=== PATIENT | female | born 1990 | race American Indian/Alaskan Native ===

== ENCOUNTER 2019-04-06 19:19 | Emergency (ER) | payer MEDICAID ==
--- NOTE | 2019-04-06 19:51 | Event Note ---
ED Screening Note Date of service: 04/06/19 Time: 19:47 ED Screening Note: 29 y o female presents with sudden onset of left sided radiating chest pain to back statrted at 3 pm today getting worse This initial assessment/diagnostic orders/clinical plan/treatment(s) is/are subject to change based on patients health status, clinical progression and re- assessment by fellow clinical providers in the ED. Further treatment and workup at subsequent clinical providers discretion. Patient/guardian urged not to elope from the ED as their condition may be serious if not clinically assessed and managed. Initial orders include: labd ua cxr O2 stat Main side eval
[2019-04-06 20:30] LABS: Bacteria,Urine 4+ /HPF (Negative); Bilirubin,Urine NEG (Negative); Blood,Urine LG (Negative); Color,Urine Yellow (Yellow); Hyaline Casts,Urine 2 /LPF; Mucus,Urine 3+ /HPF; Sperm,Urine FEW /HPF (NP); Urobilinogen,Urine < 2.0 mg/dL (<2.0)
[2019-04-06 20:34] LABS: Basophils % (Auto) 0.5 % (0.0-1.8); Eosinophils # (Auto) 0.1 K/mm3 (0.0-0.4); Eosinophils % (Auto) 1.8 % (0.0-4.3); Hematocrit 38.8 % (30.3-42.9); Hemoglobin 12.4 gm/dl (10.1-14.3); Lymphocytes # (Auto) 2.6 K/mm3 (1.2-5.4); Lymphocytes % (Auto) 34.7 % (13.4-35.0); Mean Corpuscular HGB Conc 32 % (30-34); Mean Corpuscular Volume 81 fl (79-97); Monocytes # (Auto) 0.7 K/mm3 (0.0-0.8); Monocytes % (Auto) 9.3 % (0.0-7.3); Platelet Count 260 K/mm3 (140-440); Red Cell Distribution Width 17.3 % (13.2-15.2)
[2019-04-06 20:40] LABS: Amphetamine Screen,Urine PRESUMPTIVE NEGATIVE; Benzodiazepines Screen,Urine PRESUMPTIVE NEGATIVE; Cocaine Screen,Urine PRESUMPTIVE NEGATIVE; Methadone Screen,Urine PRESUMPTIVE NEGATIVE; Opiate Screen,Urine PRESUMPTIVE NEGATIVE
[2019-04-06 20:54] LABS: Cannabinoid Screen,Urine PRESUMPTIVE POSITIVE
[2019-04-06 20:58] LABS: Alanine Aminotransferase 9 units/L (7-56); Albumin 4.5 g/dL (3.9-5); BUN/Creatinine Ratio 19; Blood Urea Nitrogen 15 mg/dL (7-17); Calcium 9.1 mg/dL (8.4-10.2); Hemolysis Index 5
[2019-04-06] MEDS ORDERED: SODIUM CHLORIDE 0.9% 1000 ML 1,000 ML IV ONE (21:48)
[2019-04-06] MEDS ORDERED: ONDANSETRON 4 MG/2 ML INJ IV ONE (21:48)
[2019-04-06] MEDS ORDERED: MORPHINE 4 MG/1 ML INJ IV ONE (21:48)
--- NOTE | 2019-04-06 21:53 | Emergency Department Report ---
ED Chest Pain HPI - General Chief Complaint: Chest Pain Stated Complaint: FLANK PAIN Time Seen by Provider: 04/06/19 19:46 Source: patient Mode of arrival: Ambulatory Limitations: No Limitations - History of Present Illness Initial Comments: Patient is 29 years old female with no significant past medical history. Patient presented to the ER complaining of left sided chest pain, started all of a sudden this afternoon. Patient describes her pain as sharp in nature with no radiation. Patient stated that pain worse with movement and improved with rem aining still. Patient denied any shortness of breath, cough, fever or chills. MD Complaint: chest pain -: This afternoon Onset: during rest Pain Location: left chest Pain Radiation: none Severity scale (0 -10): 6 Quality: sharp Consistency: constant Improves With: remaining still Worsens With: movement - Related Data Home Medications Medication Instructions Recorded Confirmed Last Taken No Known Home Medications [No 03/12/14 03/12/14 Unknown Reported Home Medications] Allergies Allergy/AdvReac Type Severity Reaction Status Date / Time No Known Allergies Allergy Unverified 03/12/14 06:04 Heart Score - HEART Score History: Slightly suspicious EKG: Normal Age: < 45 Risk factors: No known risk factors Troponin: < normal limit HEART Score: 0 - Critical Actions Critical Actions: 0-3 pts:0.9-1.7%risk of adverse cardiac event.Candidate for discharge ED Review of Systems ROS: Stated complaint: FLANK PAIN Other details as noted in HPI ED Past Medical Hx - Past Medical History Previous Medical History?: No - Surgical History Past Surgical History?: Yes Additional Surgical History: Tummy tuck - Social History Smoking Status: Never Smoker Substance Use Type: Marijuana - Medications Home Medications: Home Medications Medication Instructions Recorded Confirmed Last Taken Type No Known Home Medications [No 03/12/14 03/12/14 Unknown History Reported Home Medications] ED Physical Exam - General Limitations: No Limitations ED Course Vital Signs 04/06/19 04/06/19 04/06/19 19:53 21:50 21:55 Temperature 98 F 98.2 F Pulse Rate 83 69 Respiratory 20 16 16 Rate Blood Pressure 126/54 Blood Pressure 108/69 [Right] O2 Sat by Pulse 90 100 Oximetry 04/06/19 22:25 Temperature Pulse Rate Respiratory 19 Rate Blood Pressure Blood Pressure [Right] O2 Sat by Pulse Oximetry ED Medical Decision Making - Lab Data Result diagrams: 04/06/19 20:16 04/06/19 20:16 - EKG Data -: EKG Interpreted by Me EKG shows normal: sinus rhythm Rate: normal - EKG Data Interpretation: no acute changes - Radiology Data Radiology results: report reviewed Patient is 29 years old female with no significant past medical history. Patient presented to the ER complaining of left sided chest pain, started all of a sudden this afternoon. Patient describes her pain as sharp in nature with no radiation. Patient stated that pain worse with movement and improved with remaining still. Patient denied any shortness of breath, cough, fever or chills. Patient received morphine and Zofran. Patient stated that she is feeling much better. Labs reviewed and is negative except for positive UTI. D-dimer is unremarkable. Chest x-ray is negative. Patient had a CT abdomen and pelvis was no acute finding. Patient given Rocephin IV. Patient given a prescription of ciprofloxacin and advised to follow-up with her primary care physician in the next 2-3 days and to return to the ER if symptoms are not improved. Critical care attestation.: If time is entered above; I have spent that time in minutes in the direct care of this critically ill patient, excluding procedure time. ED Disposition Clinical Impression: Abdominal pain, UTI (urinary tract infection) Disposition: - TO HOME OR SELFCARE Is pt being admited?: No Condition: Stable Instructions: Abdominal Pain (ED), Urinary Tract Infection in Women (ED) Referrals: [facility] [Provider Group] - 3-5 Days
--- NOTE | 2019-04-06 22:06 | XRay Report ---
CHEST 2 VIEWS INDICATION / CLINICAL INFORMATION: Chest Pain. COMPARISON: None available. FINDINGS: SUPPORT DEVICES: None. HEART / MEDIASTINUM: No significant abnormality. LUNGS / PLEURA: No significant pulmonary or pleural abnormality. No pneumothorax. ADDITIONAL FINDINGS: No significant additional findings. IMPRESSION: 1. No acute findings. Signer Name: Alex Leonardo MD Signed: 04/06/2019 10:01 PM Workstation Name: [id number]
[2019-04-06] MEDS ORDERED: cefTRIAXone/NS 1 GM/50 ML 1 GM/50 ML BAG IV ONE (22:29)
--- NOTE | 2019-04-06 23:16 | Cat Scan Report ---
CT ABDOMEN AND PELVIS WITHOUT CONTRAST INDICATION: ABDOMINAL PAIN/left flank pain. TECHNIQUE: Axial CT images were obtained through the abdomen and pelvis without IV contrast. All CT scans at [facility] location are performed using CT dose reduction for ALARA by means of automated exposure control. COMPARISON: None available. FINDINGS: LOWER CHEST: Right lower lobe linear atelectasis. LIVER: No significant abnormality. GALLBLADDER: No significant abnormality. BILE DUCTS: No significant abnormality. PANCREAS: No significant abnormality. SPLEEN: No significant abnormality. ADRENALS: No significant abnormality. RIGHT KIDNEY and URETER: No significant abnormality. LEFT KIDNEY and URETER: No significant abnormality. STOMACH and SMALL BOWEL: No significant abnormality. COLON: No significant abnormality. APPENDIX: Normal PERITONEUM: No free fluid. No free air. No fluid collection. LYMPH NODES: No significant adenopathy. AORTA and ARTERIES: No significant abnormality. IVC and VEINS: No significant abnormality. URINARY BLADDER: No significant abnormality. REPRODUCTIVE ORGANS: No significant abnormality. ADDITIONAL FINDINGS: None. SKELETAL SYSTEM: No significant abnormality. IMPRESSION: 1. No significant abnormality. Signer Name: Alex Leonardo MD Signed: 04/06/2019 11:12 PM Workstation Name: [id number]
[2019-04-07] MEDS ORDERED: KETOROLAC 30 MG/1 ML INJ IV ONE (00:28)
[2019-04-07 01:17] VITALS: BP 122/68
== END 2019-04-07 01:04 | disposition home or self-care (01) ==
LOC: ED 19:19
DX: N39.0 Urinary tract infection, site not specified (principal); F12.10 Cannabis abuse, uncomplicated; Z79.899 Other long term (current) drug therapy
CPT/HCPCS: 36415; 71046; 74176; 80053; 80307; 81001; 84484; 84703; 85025; 85379; 93005; 93010; 96361; 96365; 96375; 99285; J0696; J1885; J2270; J2405; J7030